=== PATIENT | female | born 1940 | race Caucasian/White ===

== ENCOUNTER → 2018-06-15 | Outpatient (CLI) | payer MEDICARE, OTHER ==
--- NOTE | 2018-06-15 13:57 | Diagnostic Imaging Report ---
INDICATION: Fall 3 views were obtained FINDINGS: The bones are osteopenic. There are mild degenerative change. There is no fracture or dislocation. Left lung is clear. IMPRESSION: Osteopenia and mild degenerative change however no acute fracture or dislocation. Dictated by: Dictated on workstation # [id number]
--- NOTE | 2018-06-15 15:00 | Diagnostic Imaging Report ---
INDICATION: Followup fracture. COMPARISON: None. FINDINGS: Three radiographic views of the left elbow were obtained. There is focal lucency involving the proximal radius, consistent with a fracture. The fracture line does extend into the articular surface of the radial head. There is, however, no significant displacement of the fracture fragments. There is no prior available for comparison. No other acute osseous abnormalities are seen. The joint spaces are maintained. There is no large joint effusion. No unexpected radiopaque foreign bodies are identified. IMPRESSION: Nondisplaced intra-articular radial head fracture as described above. Dictated by: Dictated on workstation # [id number]
== END ==
LOC: RAD FS 13:42
PROVIDERS: ATTEND Nurse Practitioner
DX: S52.132 Displaced fracture of neck of left radius (principal); M85.812 Other specified disorders of bone density and structure, left shoulder; M19.012 Primary osteoarthritis, left shoulder
CPT/HCPCS: 73030; 73080

== ENCOUNTER 2018-08-12 20:29 | Emergency (ER) | payer MEDICARE, OTHER ==
[~2018-08-12] VITALS: Ht 165.1 cm; Wt 63.5 kg
--- NOTE | 2018-08-12 21:10 | ED General ---
General Chief Complaint: General Problems/Pain Stated Complaint: HIGH BP; RIGHT ARM PAIN Source of Information: Patient, RN Notes Reviewed Exam Limitations: No Limitations History of Present Illness Date Seen by Provider: Aug 12, 2018 Time Seen by Provider: 21:09 Severity: Moderate Allergies and Home Medications Allergies Coded Allergies: No Known Drug Allergies (Unverified , 08/12/18) Past Iqvmuje-Ibwldb-Vbrhgh Hx Patient Social History Recent Foreign Travel: No Contact w/Someone Who Travel: No Physical Exam Vital Signs Vital Signs - First Documented 08/12/18 08/12/18 20:45 22:26 Temp 98.7 Pulse 76 Resp 20 B/P (MAP) 186/70 (108) Pulse Ox 99 Capillary Refill : Height, Weight, BMI Height: '" Weight: lbs. oz. kg; BMI Method: Progress/Results/Core Measures Suspected Sepsis SIRS Temperature: Pulse: Respiratory Rate: Blood Pressure / Mean: Results/Orders My Orders Orders - HARSHIL SUN DO Ekg Tracing (08/12/18 21:11) Oxycodone Immediate Rel Tablet (Oxyir Ta (08/12/18 21:30) Medications Given in ED Current Medications Medications Dose Ordered Sig/Floyd Route Start Time Stop Time Status Last Admin Dose Admin Oxycodone HCl 5 mg ONCE ONCE PO 08/12/18 21:30 08/12/18 21:31 DC 08/12/18 21:43 5 MG Vital Signs/I&O 08/12/18 08/12/18 20:45 22:26 Temp 98.7 98.7 Pulse 76 76 Resp 20 20 B/P (MAP) 186/70 (108) 186/70 (108) Pulse Ox 99 Capillary Refill : ECG Initial ECG Impression Date: Aug 12, 2018 Initial ECG Impression Time: 21:30 Initial ECG Rate: 67 Initial ECG Rhythm: Normal Sinus Initial ECG Impression: Nonspecific Changes (probable LAE) Departure Impression Primary Impression: Post-op pain Additional Impression: Labile hypertension Disposition: 01 HOME, SELF-CARE Condition: Improved Departure-Patient Inst. Decision time for Depature: 22:09 Referrals: SELFMIRIAN MD (PCP/Family) Primary Care Physician Patient Instructions: Postoperative Pain (DC) Add. Discharge Instructions: All discharge instructions reviewed with patient and/or family. Voiced understanding. TAKE YOUR PAIN MEDS/MUSCLE RELAXANTS DIRECTED. HARSHIL SUN DO Aug 12, 2018 21:10
--- OUTSIDE RECORDS SUMMARY | 2018-08-12 21:51 | XMS REPORT | Continuity of Care Document ---
Author Organization Unknown Address Unknown Allergies There is no data. Medications There is no data. Problems Date Dx Coded Attending Type Code Diagnosis Diagnosed By 06/16/2018 GERARDO FAUST Ot M19.012 PRIMARY OSTEOARTHRITIS, LEFT SHOULDER 06/16/2018 GERARDO FAUST Ot M85.812 OTH DISRD OF BONE DENSITY AND STRUCTURE, 06/16/2018 GERARDO FAUST Ot S52.132G DISP FX OF NECK OF LEFT RAD, SUBS FOR CL 06/17/2018 GERARDO FAUST Ot M19.012 PRIMARY OSTEOARTHRITIS, LEFT SHOULDER 06/17/2018 GERARDO FAUSTP Ot M85.812 OTH DISRD OF BONE DENSITY AND STRUCTURE, 06/17/2018 GERARDO FAUSTP Ot S52.132G DISP FX OF NECK OF LEFT RAD, SUBS FOR CL 06/21/2018 GERARDO FAUST Ot M19.012 PRIMARY OSTEOARTHRITIS, LEFT SHOULDER 06/21/2018 GERARDO FAUSTP Ot M85.812 OTH DISRD OF BONE DENSITY AND STRUCTURE, 06/21/2018 GERARDO FAUSTP Ot S52.132G DISP FX OF NECK OF LEFT RAD, SUBS FOR CL 07/07/2018 GERARDO FAUST Ot M19.012 PRIMARY OSTEOARTHRITIS, LEFT SHOULDER 07/07/2018 GERARDO FAUSTP Ot M85.812 OTH DISRD OF BONE DENSITY AND STRUCTURE, 07/07/2018 GERARDO FAUST Ot S52.132G DISP FX OF NECK OF LEFT RAD, SUBS FOR CL 07/24/2018 GERARDO FAUST Ot M19.012 PRIMARY OSTEOARTHRITIS, LEFT SHOULDER 07/24/2018 GERARDO FAUST Ot M85.812 OTH DISRD OF BONE DENSITY AND STRUCTURE, 07/24/2018 GERARDO FAUST Ot S52.132G DISP FX OF NECK OF LEFT RAD, SUBS FOR CL 08/12/2018 GERARDO FAUST Ot M19.012 PRIMARY OSTEOARTHRITIS, LEFT SHOULDER 08/12/2018 GERARDO FAUST Ot M85.812 OTH DISRD OF BONE DENSITY AND STRUCTURE, 08/12/2018 GERARDO FAUST Ot S52.132G DISP FX OF NECK OF LEFT RAD, SUBS FOR CL Procedures There is no data. Results There is no data. Encounters ACCT No. Visit Date/Time Discharge Status Pt. Type Provider Facility Loc./Unit Complaint [id number] 06/15/2018 13:42:00 06/15/2018 23:59:59 CLS Outpatient GERARDO FAUST Via [facility] RAD FS M25.512 [id number] 08/12/2018 20:31:00 ACT Emergency HARSHIL SUN DO Via [facility] ER FS HIGH BP; RIGHT ARM PAIN
[2018-08-12 22:26] VITALS: BP 186/70
== END 2018-08-12 22:27 | disposition home or self-care (01) ==
LOC: EDUNIT# 20:29 → ER FS 20:31
DX: G89.18 Other acute postprocedural pain (principal); M79.601 Pain in right arm; R03.0 Elevated blood-pressure reading, without diagnosis of hypertension
CPT/HCPCS: 93005

== ENCOUNTER 2018-11-11 15:48 | Emergency (ER) | payer MEDICARE, OTHER ==
[~2018-11-11] VITALS: Ht 165 cm; Wt 63.4 kg
--- NOTE | 2018-11-11 15:54 | ED General ---
General Chief Complaint: Abdominal/GI Problems Stated Complaint: PAIN WITH BOWEL MOVEMENTS History of Present Illness Date Seen by Provider: Nov 11, 2018 Time Seen by Provider: 15:54 Initial Comments Patient presenting to the [facility] department for evaluation of complaints of abdominal pain back pain diarrhea. The diarrhea has been an issue for at least 2 years for which she has seen multiple providers in this area and in [facility] where she lives part of the time. She says it isn't explosive diarrhea that she can be going at least 12 times a day. She gave the example of 10 days ago she was at a wedding and she had to leave the ceremony multiple times and there was leaking stool down her leg because she cannot hold it. She took tripped several days later and in the car had explosive diarrhea again. She says she has not been having as much explosive diarrhea until and today and she had an intense right-sided abdominal pain that radiated towards her back and down her right leg. She denies any fevers chills vomiting dysuria hematuria vaginal bleeding or vaginal discharge. She says she has seen multiple providers including GI specialist who have done endoscopies and colonoscopies with no etiology or specific treatment. She says a chi ropractor that she saw did allergy testing and thought that she may have a gluten intolerance and she has adjusted her diet which has helped some however the incidence of these episodes have been more frequent recently. She wants a referral to see a specific specialist in [place] for this issue and she is waiting for that referral from her primary care provider. She says she has never had her stool tested. There was a time about a year ago that she was on antibiotics from 3 different providers and she said that made her diarrhea worse at the time. She is in no obvious distress with normal vital signs. Allergies and Home Medications Allergies Coded Allergies: No Known Drug Allergies (Unverified , 08/12/18) Patient Home Medication List Home Medication List Reviewed: Yes Review of Systems Review of Systems Constitutional: no symptoms reported EENTM: no symptoms reported Respiratory: no symptoms reported Cardiovascular: no symptoms reported Gastrointestinal: abdominal pain, diarrhea Genitourinary: no symptoms reported Musculoskeletal: back pain Skin: no symptoms reported Psychiatric/Neurological: No Symptoms Reported All Other Systems Reviewed Negative Unless Noted: Yes Past Ozvspou-Ramzou-Zjiewd Hx Patient Social History 2nd Hand Smoke Exposure: No Recent Foreign Travel: No Contact w/Someone Who Travel: No Recent Hopitalizations: Yes (ortho [place]) Seasonal Allergies Seasonal Allergies: No Past Medical History Surgeries: Yes (L rotator cuff, bilat feet, neck C4-C6 fusion, facelift, breast augmentatio) Gallbladder, Hysterectomy, Orthopedic Respiratory: No Cardiac: No Neurological: No [employer]MENT [employer] History: Hysterectomy Genitourinary: No Gastrointestinal: No Musculoskeletal: Yes (see surg section) HEENT: No Cancer: No Psychosocial: No Blood Disorders: No Physical Exam Vital Signs Vital Signs - First Documented 11/11/18 16:00 Temp 36.9 Pulse 70 Resp 16 B/P (MAP) 176/84 (114) Pulse Ox 99 O2 Delivery Room Air Capillary Refill : Height, Weight, BMI Height: 5'5.00" Weight: 140lbs. oz. 63.726649is; BMI Method:Stated General Appearance: No Apparent Distress, WD/WN HEENT: PERRL/EOMI Neck: Supple Respiratory: No Respiratory Distress Cardiovascular: Regular Rate, Rhythm Gastrointestinal: Soft, Tenderness (right upper and lower quadrant with no rebound or guarding) Rectal: Deferred Back: Normal Inspection Neurologic/Psychiatric: Alert, Oriented x3 Progress/Results/Core Measures Suspected Sepsis SIRS Temperature: Pulse: Respiratory Rate: Laboratory Tests 11/11/18 16:29: White Blood Count 7.6 Blood Pressure / Mean: Laboratory Tests 11/11/18 16:29: Creatinine 0.72, Platelet Count 245, Total Bilirubin 0.2 Results/Orders Lab Results Laboratory Tests Test 11/11/18 16:29 Range/Units White Blood Count 7.6 4.3-11.0 10^3/uL Red Blood Count 3.94 L 4.35-5.85 10^6/uL Hemoglobin 12.5 11.5-16.0 G/DL Hematocrit 38 35-52 % Mean Corpuscular Volume 97 80-99 FL Mean Corpuscular Hemoglobin 32 25-34 PG Mean Corpuscular Hemoglobin Concent 33 32-36 G/DL Red Cell Distribution Width 13.9 10.0-14.5 % Platelet Count 245 130-400 10^3/uL Mean Platelet Volume 8.8 7.4-10.4 FL Neutrophils (%) (Auto) 58 42-75 % Lymphocytes (%) (Auto) 29 12-44 % Monocytes (%) (Auto) 10 0-12 % Eosinophils (%) (Auto) 2 0-10 % Basophils (%) (Auto) 1 0-10 % Neutrophils # (Auto) 4.4 1.8-7.8 X 10^3 Lymphocytes # (Auto) 2.2 1.0-4.0 X 10^3 Monocytes # (Auto) 0.7 0.0-1.0 X 10^3 Eosinophils # (Auto) 0.2 0.0-0.3 10^3/uL Basophils # (Auto) 0.1 0.0-0.1 10^3/uL Sodium Level 139 135-145 MMOL/L Potassium Level 4.2 3.6-5.0 MMOL/L Chloride Level 104 98-107 MMOL/L Carbon Dioxide Level 24 21-32 MMOL/L Anion Gap 11 5-14 MMOL/L Blood Urea Nitrogen 17 7-18 MG/DL Creatinine 0.72 0.60-1.30 MG/DL Estimat Glomerular Filtration Rate > 60 BUN/Creatinine Ratio 24 Glucose Level 100 70-105 MG/DL Calcium Level 9.4 8.5-10.1 MG/DL Corrected Calcium 9.3 8.5-10.1 MG/DL Magnesium Level 1.9 1.6-2.4 MG/DL Total Bilirubin 0.2 0.1-1.0 MG/DL Aspartate Amino Transf (AST/SGOT) 48 H 5-34 U/L Alanine Aminotransferase (ALT/SGPT) 40 0-55 U/L Alkaline Phosphatase 99 40-136 U/L Total Protein 7.2 6.4-8.2 GM/DL Albumin 4.1 3.2-4.5 GM/DL Lipase 67 8-78 U/L My Orders Orders - DINA BETANCUR DO Cbc With Automated Diff (11/11/18 16:13) Comprehensive Metabolic Panel (11/11/18 16:13) Ua Culture If Indicated (11/11/18 16:13) Lipase (11/11/18 16:13) Magnesium (11/11/18 16:13) Ct Abdomen/Pelvis W (11/11/18 16:13) C Difficile Ag + Toxin A/B. (11/11/18 16:13) Isolation Central Supply Req (11/11/18 16:13) Stool Culture (11/11/18 16:13) Parasite Scrn Stool Giard Cryp (11/11/18 16:13) Fecal Wbc (11/11/18 16:13) Ns Iv 1000 Ml (Sodium Chloride 0.9%) (11/11/18 16:15) Ondansetron Injection (Zofran Injectio (11/11/18 16:15) Ketorolac Injection (Toradol Injection) (11/11/18 16:15) Morphine Injection (Morphine Injection (11/11/18 16:13) Dicyclomine Injection (Bentyl Injection) (11/11/18 16:15) Iohexol Injection (Omnipaque 350 Mg/Ml 1 (11/11/18 17:15) Received Contrast (Hold Metformin- Contr (11/11/18 17:15) Sodium Chloride Flush (Catheter Flush Sy (11/11/18 17:15) Ns (Ivpb) (Sodium Chloride 0.9% Ivpb Bag (11/11/18 17:15) Hydrocodone/Apap 5/325 Tablet (Lortab 5 (11/11/18 17:45) Medications Given in ED Current Medications Medications Dose Ordered Sig/Floyd Route Start Time Stop Time Status Last Admin Dose Admin Dicyclomine HCl 20 mg ONCE ONCE IM 11/11/18 16:15 11/11/18 16:16 DC 11/11/18 16:39 20 MG Iohexol 100 ml ONCE ONCE IV 11/11/18 17:15 11/11/18 17:16 DC 11/11/18 17:19 100 ML Ketorolac Tromethamine 15 mg ONCE ONCE IVP 11/11/18 16:15 11/11/18 16:16 DC 11/11/18 16:38 15 MG Ondansetron HCl 4 mg ONCE ONCE IVP 11/11/18 16:15 11/11/18 16:16 DC 11/11/18 16:37 4 MG Sodium Chloride 10 ml NEEDED PRN IV 11/11/18 17:15 11/11/18 17:19 10 ML Sodium Chloride 100 ml ONCE ONCE IV 11/11/18 17:15 11/11/18 17:16 DC 11/11/18 17:19 80 ML Vital Signs/I&O 11/11/18 16:00 Temp 36.9 Pulse 70 Resp 16 B/P (MAP) 176/84 (114) Pulse Ox 99 O2 Delivery Room Air Capillary Refill : Progress Note : Progress Note She has had a she'll appendectomy cholecystectomy and hysterectomy. I will try and get stool studies checked for her and will check some basic lab work and CT to make sure there is no surgical pathology. This sounds as if she has some sort of combination of substance intolerance such as gluten or soy with a combination of irritable bowel syndrome. I do not think I will have an exact etiology to her symptoms will try and support her as best I can in relieving her symptoms. Patient's workup rather unremarkable and her pain is improved with no focal tenderness rebound or guarding on repeat abdominal examination. I looked up s ome information on treating irritable bowel syndrome and there is some evidence Zofran or tricyclic antidepressants and help the symptoms. I discussed treatment options with her and she was willing to try combination of Zofran and Bentyl and [place] for her pain will she is awaiting seeing the specialist in [place] hopefully next week. Patient is frustrated that the symptoms have been going on years and no one seems to be able to figure it out I told her that can be typical for some more rare conditions especially when it is chronic abdominal pain and diarrhea. Patient will be discharged in stable condition told to keep her follow-up and come back to the ED sooner with worsening pain fevers vomiting or other general concerns. Departure Impression Primary Impression: Abdominal pain Additional Impressions: Diarrhea Irritable bowel syndrome (IBS) Disposition: 01 HOME, SELF-CARE Condition: Stable Departure-Patient Inst. Referrals: SELF,MIRIAN DUBON (PCP/Family) Primary Care Physician Patient Instructions: Irritable Bowel Syndrome (DC) Scripts Hydrocodone/Acetaminophen ([place] 5-325 Tablet) 1 Each Tablet 1 TAB PO Q6H for Pain MDD 10 TABS for 7 Days, #14 TAB Prov: DINA BETANCUR DO 11/11/18 Dicyclomine HCl (Bentyl) 20 Mg/2 Ml Inj 20 MG PO TID PRN for ABDOMINAL PAIN, #20 VIAL Prov: DINA BETANCUR DO 11/11/18 Ondansetron (Ondansetron Odt) 4 Mg Tab.rapdis 4 MG PO TID, #30 TAB Prov: DINA BETANCUR DO 11/11/18 DINA BETANCUR DO Nov 11, 2018 15:54
[2018-11-11] MEDS ORDERED: morphine INJ 10 MG/ML 1ML (SYR OR VIAL) IVP STA (16:13)
[2018-11-11] MEDS ORDERED: NS IV 1000 ML 1,000 ML IV SCH (16:15)
[2018-11-11] MEDS ORDERED: KETOROLAC 15 MG/ML VIAL IVP ONE (16:15)
[2018-11-11] MEDS ORDERED: ONDANSETRON 4 MG/2 ML (SDV) Z0FRAN IVP ONE (16:15)
[2018-11-11] MEDS ORDERED: DICYCLOMINE 10 MG/ML (BENTYL) 2 ML AMP IM ONE (16:15)
[2018-11-11 16:41] LABS: BASOPHILS # (AUTO) 0.1 10^3/uL (0.0-0.1); BASOPHILS % (AUTO) 1 % (0-10); EOSINOPHILS # (AUTO) 0.2 10^3/uL (0.0-0.3); EOSINOPHILS % (AUTO) 2 % (0-10); HEMATOCRIT 38 % (35-52); HEMOGLOBIN 12.5 G/DL (11.5-16.0); LYMPHOCYTES # (AUTO) 2.2 X 10^3 (1.0-4.0); LYMPHOCYTES % (AUTO) 29 % (12-44); MEAN CORPUSCULAR HEMOGLOBIN 32 PG (25-34); MEAN CORPUSCULAR HGB CONC 33 G/DL (32-36); MEAN CORPUSCULAR VOLUME 97 FL (80-99); MEAN PLATELET VOLUME 8.8 FL (7.4-10.4); MONOCYTES # (AUTO) 0.7 X 10^3 (0.0-1.0); MONOCYTES % (AUTO) 10 % (0-12); NEUTROPHILS # (AUTO) 4.4 X 10^3 (1.8-7.8); NEUTROPHILS % (AUTO) 58 % (42-75); PLATELET COUNT 245 10^3/uL (130-400); RED CELL DISTRIBUTION WIDTH 13.9 % (10.0-14.5); WHITE BLOOD COUNT 7.6 10^3/uL (4.3-11.0)
[2018-11-11 17:00] LABS: CARBON DIOXIDE 24 MMOL/L (21-32); CHLORIDE 104 MMOL/L (98-107); POTASSIUM 4.2 MMOL/L (3.6-5.0); SODIUM 139 MMOL/L (135-145)
[2018-11-11 17:01] LABS: ALANINE AMINOTRANSFERASE 40 U/L (0-55); ALBUMIN 4.1 GM/DL (3.2-4.5); ALKALINE PHOSPHATASE 99 U/L (40-136); BILIRUBIN,TOTAL 0.2 MG/DL (0.1-1.0); BUN/CREATININE RATIO 24; CALCIUM 9.4 MG/DL (8.5-10.1); CREATININE SERUM 0.72 MG/DL (0.60-1.30); GFR ESTIMATED > 60; GLUCOSE 100 MG/DL (70-105); LIPASE 67 U/L (8-78); MAGNESIUM 1.9 MG/DL (1.6-2.4); TOTAL PROTEIN 7.2 GM/DL (6.4-8.2)
[2018-11-11] MEDS ORDERED: IOHEXOL 350 MG/ML 100 ML (OMNIPAQUE 350) VIAL IV ONE (17:15)
[2018-11-11] MEDS ORDERED: NS 100 ML (IVPB) BAG IV ONE (17:15)
[2018-11-11] MEDS ORDERED: HOLD METFORMIN - RECEIVED CONTRAST 20 ML VIAL IV SCH (17:15)
[2018-11-11] MEDS ORDERED: CATHETER FLUSH 10 ML SYR IV PRN (17:15)
[2018-11-11] MEDS ORDERED: ONDA4TAB11 PO (17:39)
[2018-11-11] MEDS ORDERED: DCCL10A2 PO (17:39)
[2018-11-11] MEDS ORDERED: HYDR-4226 PO (17:39)
[2018-11-11] MEDS ORDERED: HYDROcodone/APAP 5 MG/325 MG (LORTAB) TAB PO ONE (17:45)
[2018-11-11 17:55] LABS: BILIRUBIN,URINE NEGATIVE (NEGATIVE); CLARITY,URINE CLEAR; COLOR,URINE YELLOW; GLUCOSE, URINE (UA) NEGATIVE (NEGATIVE); KETONES,URINE NEGATIVE (NEGATIVE); LEUKOCYTE ESTERASE ,URINE NEGATIVE (NEGATIVE); NITRITE,URINE NEGATIVE (NEGATIVE); PROTEIN,URINE NEGATIVE (NEGATIVE); SQUAMOUS EPITHELIAL CELL,UR RARE /HPF; UROBILINOGEN,URINE 0.2 MG/DL (NORMAL)
--- NOTE | 2018-11-11 17:57 | Diagnostic Imaging Report ---
EXAMINATION: CT abdomen and pelvis with contrast from 11/11/2018. TECHNIQUE: Multiple contiguous axial images were obtained through the abdomen and pelvis after administration of intravenous contrast. Auto Exposure Controls were utilized during the CT exam to meet ALARA standards for radiation dose reduction. INDICATION: Abdominal pain on the right side with diarrhea for the last 10 days. Appendectomy. Gallbladder removed. Hysterectomy. COMPARISON: None. FINDINGS: There is diffuse fatty infiltration throughout the liver. Multiple low-density lesions throughout the liver are also noted, some of which are too small for characterization. Others are consistent with cysts. There is evidence of previous cholecystectomy. The adrenal glands, spleen, and pancreas are unremarkable. Common duct is slightly dilated but likely due to the post cholecystectomy changes. The kidneys contain multiple subcentimeter tiny hypodensities, too small for characterization. No acute abnormality. There is diffuse atherosclerotic disease. There is diverticulosis without evidence for diverticulitis. No free fluid or air in the abdomen or pelvis. Incompletely imaged peripherally calcified breast implants are noted bilaterally and grossly unremarkable. Lung bases demonstrate nodular changes in the visualized lingula. Adjacent bronchiectasis is seen. The largest nodule measures approximately 9.3 mm in size. Small nodularities or focal atelectasis/scarring noted in the visualized lingula as well. Bibasilar dependent atelectasis is also noted. The osseous structures are unremarkable. IMPRESSION: 1. Multifocal incidental findings as described above including post cholecystectomy changes and dilated common duct, likely due to the prior cholecystectomy. Correlation with liver enzymes and patient's symptoms recommended. 2. Diverticular disease without evidence for acute diverticulitis. 3. Nodular densities all of which are incompletely imaged in the visualized lingula and right middle lobe. An atypical infectious etiology or viral process could have this appearance with small lung masses not excluded and follow-up recommended to assure stability and/or resolution. Dictated by: Dictated on workstation # [id number]
[2018-11-11 18:20] VITALS: BP 167/71
== END 2018-11-11 18:20 | disposition home or self-care (01) ==
LOC: EDUNIT# 15:48 → ER FS 15:49
DX: K58.9 Irritable bowel syndrome, unspecified (principal); R19.7 Diarrhea, unspecified; Z90.710 Acquired absence of both cervix and uterus
CPT/HCPCS: 36415; 74177; 80053; 81000; 83690; 83735; 85025; 87015; 87045; 87046; 87324; 87328; 87329; 87449; 87899; 89055

== ENCOUNTER → 2018-12-21 | Outpatient (CLI) | payer MEDICARE, OTHER ==
[~2018-12-21] MED LIST: DCCL10A2 PO; HYDR-4226 PO; ONDA4TAB11 PO
--- NOTE | 2018-12-21 14:32 | Diagnostic Imaging Report ---
EXAMINATION: MRI of the lumbar spine without contrast, 12/21/2018. TECHNIQUE: Multiplanar, multisequence MRI of the lumbar spine was performed without contrast. INDICATION: Chronic back pain. FINDINGS: There is normal height and alignment of the vertebral bodies. No compression deformities appreciated. The tip of the conus is unremarkable in appearance and location. At L1-L2, there is intervertebral disc space narrowing and disc desiccation. There is bilateral facet and ligamentum flavum hypertrophy. No central stenosis. There is mild bilateral neural foraminal narrowing. L2-L3: Bilateral facet and ligamentum flavum hypertrophy noted. There is disc desiccation. There is minimal broad-based bulging disc material with no significant central stenosis. Bilateral [id number] neural foraminal narrowing is seen. L3-L4: There is intervertebral disc space narrowing and disc desiccation. Broad-based bulging disc material. Bilateral facet and ligamentum flavum hypertrophy noted. No central stenosis. Minimal left neural foraminal narrowing is seen. No significant narrowing on the right. L4-L5: There is intervertebral disc space narrowing, disc desiccation, and a broad-based bulging disc, somewhat right paracentral with an annular tear present. Findings flatten the ventral thecal sac. Bilateral facet and ligamentum flavum hypertrophy is seen. No central stenosis appreciated. No significant neural foraminal narrowing. L5-S1: There is disc desiccation. There is a central disc protrusion. Bilateral facet and ligamentum flavum hypertrophy also seen. No significant central narrowing. Neural foraminal stenosis is not seen. The visualized intra-abdominal structures demonstrate multiple small cystic changes throughout the right lobe of the liver. These are somewhat small for characterization. The remaining soft tissues are grossly unremarkable. IMPRESSION: 1. Multilevel degenerative findings as above causing petl-[id number] areas of neural foraminal narrowing with minimal multilevel flattening of the ventral thecal sac but no significant central stenosis. 2. Small cystic changes in the liver, not well characterized on this examination and incompletely included. Dedicated imaging of the liver non-emergently would be recommended. 3. Not mentioned above, on the T2-weighted imaging, multiple hyperintense lesions are seen throughout several of the vertebral bodies, most marked at L1. These could possibly represent atypical hemangiomas with other lesions difficult to completely exclude. No definite abnormality in the region seen on the CT abdomen and pelvis from 11/11/2018. Bone scan may be useful to help exclude any abnormal activity within these regions. Dictated by: Dictated on workstation # [id number]
--- NOTE | 2018-12-21 14:35 | Diagnostic Imaging Report ---
INDICATION: Chronic back pain. TECHNIQUE: Multiplanar and multisequence acquisitions were acquired through the thoracic spine without the use of gadolinium. FINDINGS: The alignment of the thoracic spine is grossly normal. The vertebral body heights are well-maintained. There is no fracture or traumatic subluxation. The visualized portions of the spinal cord are normal in signal intensity and morphology. The conus medullaris is seen at L1 and is normal in appearance. There is no focal disc extrusion or evidence of high-grade spinal stenosis. IMPRESSION: Mild thoracic spondylosis; otherwise, unremarkable. Dictated by: Dictated on workstation # [id number]
== END ==
LOC: RAD 12:29
PROVIDERS: ATTEND Physician Assistant
DX: M51.37 Other intervertebral disc degeneration, lumbosacral region (principal); M51.27 Other intervertebral disc displacement, lumbosacral region; M47.815 Spondylosis without myelopathy or radiculopathy, thoracolumbar region; M48.061 Spinal stenosis, lumbar region without neurogenic claudication; K76.89 Other specified diseases of liver; M89.9 Disorder of bone, unspecified
CPT/HCPCS: 72146; 72148

== ENCOUNTER → 2019-04-06 | Outpatient (CLI) | payer MEDICARE ==
--- NOTE | 2019-04-06 10:06 | Diagnostic Imaging Report ---
INDICATION: Postmenopausal screening for osteoporosis. COMPARISON: None. FINDINGS: AP Spine L1-L4: [BMD (g/cm2): 1.012] [T-Score: -1.6] [Z-Score: 0.4] [BMD Previous: na] [BMD % Change: na] LT Hip Neck: [BMD (g/cm2): 0.776] [T-Score: -1.9] [Z-Score: 0.2] LT Hip Total: [BMD (g/cm2):0.785] [T-Score:-1.8] [Z-Score: 0.2] [BMD Previous: na] [BMD % Change: na] RT Hip Neck: [BMD (g/cm2):0.790] [T-Score:-1.8] [Z-Score:0.3] RT Hip Total: [BMD (g/cm2):0.814] [T-score:-1.5] [Z-Score:0.4] [BMD Previous:na] [BMD % Change:na] *Indicates significant change from prior examination based on 95% confidence level. World Health Organization criteria for BMD interpretation classify patients as Normal (T-score at or above -1.0), Osteopenic (T-score between -1.0 and -2.5) or Osteoporotic (T-score at or below -2.5). LIMITATIONS AND MODIFICATION: None. FRACTURE RISK (FRAX SCORE): The ten year probability of (%): Major Osteoporotic Fracture: [19.1] Hip Fracture: [4.8] IMPRESSION: 1. Osteopenia (Low bone mass). 2. Baseline examination. 3. See below National Osteoporosis Foundation guidelines on when to potentially initiate pharmacologic therapy. Based on the National Osteoporosis Foundation Guidelines, pharmacologic treatment should be initiated in any of the following, unless clinical conditions suggest otherwise: * Any patient with prior fragility fracture of the hip or vertebrae. A spine fracture indicates 5X risk for subsequent spine fracture and 2X risk for subsequent hip fracture. * Osteoporosis (T-score <-2.5). * Postmenopausal women and men age 50 and older with low bone mass/osteopenia (T-score between -1.0 and -2.5) by DXA and 10-year major osteoporotic fracture greater than 20% or a 10-year probability of hip fracture greater than 3%. These fracture risks are supplied above in the FRAX score, if applicable. * Clinician judgement and/or patient preferences may indicate treatment for people with 10-year fracture probabilities above or below these levels. Dictated by: Dictated on workstation # [id number]
== END ==
LOC: RAD 09:17
PROVIDERS: ATTEND Family Medicine
DX: Z13.820 Encounter for screening for osteoporosis (principal); M85.80 Other specified disorders of bone density and structure, unspecified site; Z78.0 Asymptomatic menopausal state
CPT/HCPCS: 77080

== ENCOUNTER → 2019-04-20 | Outpatient (CLI) | payer MEDICARE, OTHER | LOC: LAB FS 14:59 | PROVIDERS: ATTEND Orthopaedic Surgery | DX: M25.562 Pain in left knee (principal) | CPT/HCPCS: 36415; 85652; 86141 ==

== ENCOUNTER → 2019-12-02 | Outpatient (CLI) | payer MEDICARE, OTHER ==
--- NOTE | 2019-12-02 10:58 | Diagnostic Imaging Report ---
PROCEDURE: MR imaging cervical spine without contrast. TECHNIQUE: Multiplanar, multisequence MR imaging of the cervical spine was performed without contrast. INDICATION: Neck pain. Previous neck surgery. COMPARISON: None FINDINGS: Postsurgical changes of previous anterior fusion are identified extending from C4 through C6. Evaluation of the integrity of the hardware is suboptimal given MR modality and metallic susceptibility artifact, but static alignment at these levels is maintained. There is no significant anterolisthesis or retrolisthesis. There is no evidence of jumped facets. Vertebral body heights are maintained. There is no evidence of acute fracture. There is mild Modic type I change involving the C3 and C7 vertebral bodies. Otherwise, marrow signal is unremarkable. Intervertebral disc spacer material is also noted at the C4-C5 and C5-C6 levels. There is no posterior protrusion of the spinal canal. There is no other significant spinal canal stenosis. Cervical cord is normal in course and signal. There is no evidence of cord edema. No abnormal intrathecal filling defects are seen. Included portions of posterior fossa are unremarkable. Pre and paravertebral soft tissue structures are within normal limits. Note is made of bilateral T2 bright thyroid lesions. Largest on the right measures 1.1 x 1.5 cm and largest on the left measures 1.4 x 1.2 cm. Axial images show no large disc bulge or focal protrusion. There is no significant spinal canal or neural foraminal stenosis. IMPRESSION: 1. Postsurgical changes of previous anterior fusion at C4-C6. Again, integrity of the hardware cannot be adequately assessed, but there is no significant anterolisthesis at these levels. 2. No significant spinal canal or neural foraminal stenosis. 3. No acute fracture or dislocation cervical spine. 4. Bilateral T2 bright thyroid lesions. Further characterization dedicated thyroid sonogram is recommended. Dictated by: Dictated on workstation # [id number]
== END ==
LOC: RAD 09:56
PROVIDERS: ATTEND Physician Assistant
DX: M43.12 Spondylolisthesis, cervical region (principal); E07.9 Disorder of thyroid, unspecified
CPT/HCPCS: 72141

== ENCOUNTER → 2020-01-24 | Outpatient (CLI) | payer MEDICARE, OTHER ==
--- NOTE | 2020-01-24 11:43 | Diagnostic Imaging Report ---
PROCEDURE: CT cervical spine without contrast. TECHNIQUE: Multiple contiguous axial images were obtained through the cervical spine without the use of intravenous contrast. Sagittal and coronal reformations were then performed. Auto Exposure Controls were utilized during the CT exam to meet ALARA standards for radiation dose reduction. INDICATION: Neck pain. Patient has had prior cervical spine surgery. COMPARISON: No prior CT cervical spine studies available for comparison. FINDINGS: Curvature of the cervical spine is normal. There is minimal anterolisthesis of C2 on C3. There are postoperative changes of ACDF with anterior plate and screws transfixing the C4 through C6 levels. The hardware appears intact. No fracture or loosening is seen. Bony structures are intact. There is degenerative disc disease at C2-C3, C3-C4 and C6-C7 levels with disc space narrowing and marginal spurring. Prevertebral tissues are within normal limits. No fractures are seen. Odontoid is intact. IMPRESSION: Postoperative changes of C4 through C6 ACDF. No complicating features are detected. Dictated by: Dictated on workstation # [id number]
== END ==
LOC: RAD FS 10:57
PROVIDERS: ATTEND Physician Assistant
DX: M54.2 Cervicalgia (principal)
CPT/HCPCS: 72125

== ENCOUNTER 2020-03-19 12:13 | Emergency (ER) | payer MEDICARE, OTHER ==
[~2020-03-19] VITALS: Ht 165 cm; Wt 62.3 kg
[2020-03-19 12:40] LABS: BASOPHILS # (AUTO) 0.1 10^3/uL (0.0-0.1); BASOPHILS % (AUTO) 1 % (0-10); EOSINOPHILS # (AUTO) 0.3 10^3/uL (0.0-0.3); EOSINOPHILS % (AUTO) 4 % (0-10); HEMATOCRIT 29 % (35-52); HEMOGLOBIN 9.3 G/DL (11.5-16.0); LYMPHOCYTES % (AUTO) 21 % (12-44); MEAN CORPUSCULAR HEMOGLOBIN 32 PG (25-34); MEAN CORPUSCULAR HGB CONC 33 G/DL (32-36); MEAN CORPUSCULAR VOLUME 97 FL (80-99); MEAN PLATELET VOLUME 8.4 FL (7.4-10.4); MONOCYTES % (AUTO) 10 % (0-12); NEUTROPHILS # (AUTO) 6.2 X 10^3 (1.8-7.8); NEUTROPHILS % (AUTO) 65 % (42-75); PLATELET COUNT 337 10^3/uL (130-400); WHITE BLOOD COUNT 9.5 10^3/uL (4.3-11.0)
[2020-03-19 12:44] LABS: CLARITY,URINE SL CLOUDY; COLOR,URINE YELLOW
[2020-03-19 12:45] LABS: BACTERIA,URINE FEW /HPF; BILIRUBIN,URINE NEGATIVE (NEGATIVE); GLUCOSE, URINE (UA) NEGATIVE (NEGATIVE); KETONES,URINE NEGATIVE (NEGATIVE); LEUKOCYTE ESTERASE ,URINE 1+ (NEGATIVE); NITRITE,URINE NEGATIVE (NEGATIVE); PROTEIN,URINE NEGATIVE (NEGATIVE)
[2020-03-19] MEDS ORDERED: NS IV 1000 ML 1,000 ML IV SCH (12:45)
[2020-03-19] MEDS ORDERED: CATHETER FLUSH 10 ML SYR IV PRN (12:45)
[2020-03-19] MEDS ORDERED: IOHEXOL 350 MG/ML 100 ML (OMNIPAQUE 350) VIAL IV ONE (12:45)
[2020-03-19] MEDS ORDERED: HOLD METFORMIN - RECEIVED CONTRAST 20 ML VIAL IV SCH (12:45)
[2020-03-19] MEDS ORDERED: PANTOPRAZOLE 40 MG (PROTONIX) VIAL IV ONE (12:45)
[2020-03-19] MEDS ORDERED: ONDANSETRON 4 MG/2 ML (SDV) Z0FRAN IVP ONE (12:45)
[2020-03-19] MEDS ORDERED: fentaNYL INJECTION 100 MCG/2 ML AMP IVP ONE (12:45)
[2020-03-19 12:46] LABS: HYALINE CASTS, URINE 25-50 /LPF
--- NOTE | 2020-03-19 12:46 | ED GI ---
General Chief Complaint: Abdominal/GI Problems Stated Complaint: ABD PAIN,NAUSEA, BLACK STOOLS Nursing Triage Note: PT REPORTS SHE HAS CHRONIC ABDOMINAL ISSUES AND SHE HAS BEEN TAKING BENTYL 3 TIMES A DAY BUT QUIT TAKING IT ON FRIDAY BECAUSE SHE THOUGHT IT WAS MAKING HER NAUSEATED. SHE REPORTS ONE EPISODE OF A BLACK STOOL TODAY. Sepsis Screen: No Definite Risk Source of Information: Patient History of Present Illness Date Seen by Provider: Mar 19, 2020 Time Seen by Provider: 12:15 Initial Comments 79-year-old female presenting with complaints of upper epigastric and right- sided abdominal pain. She states that she has had nausea for more than a week as well. She had a black-colored stool this morning and was concerned that she was bleeding so she came to the emergency department. She feels like she is bloated in her upper abdomen. She has severe pain with movement. She denies any vomiting but has felt nauseated. She thought initially it may have been related to Bentyl medication that she was taking but she quit it on Friday. She continues to feel nauseated and having the abdominal pain. She states she did have a small bowel movement this morning that was black in color. She reports that this feels similar to when she had gallbladder problems before her gallbladder was removed. Allergies and Home Medications Allergies Coded Allergies: No Known Drug Allergies (Unverified , 08/12/18) Home Medications Cephalexin 500 Mg Tablet, 500 MG PO TID Prescribed by: LILIAN CHAPARRO on 03/19/20 143 Dicyclomine HCl 20 Mg/2 Ml Inj, 20 MG PO TID PRN for ABDOMINAL PAIN Prescribed by: DINA BETANCUR on 11/11/18 173 Hydrocodone/Acetaminophen 1 Each Tablet, 1 TAB PO Q6H Prescribed by: DINA BETANCUR on 11/11/18 173 Ondansetron 4 Mg Tab.rapdis, 4 MG PO TID Prescribed by: DINA BETANCUR on 11/11/18 173 Ondansetron 4 Mg Tab.rapdis, 4 MG PO Q6H PRN for NAUSEA/VOMITING Prescribed by: LILIAN CHAPARRO on 03/19/20 143 Pantoprazole Sodium 40 Mg Tablet.dr, 40 MG PO DAILY Prescribed by: LILIAN CHAPARRO on 03/19/20 1433 Sucralfate 1 Gm Tablet, 1 GM PO ACHS Chew tablet to a slurry and then swallow Prescribed by: LILIAN CHAPARRO on 03/19/20 1433 Patient Home Medication List Home Medication List Reviewed: Yes Review of Systems Review of Systems Constitutional: No chills, No fever, No malaise EENTM: No Symptoms Reported Respiratory: No Symptoms Reported Cardiovascular: No Symptoms Reported Gastrointestinal: See HPI Genitourinary: Denies Pain Musculoskeletal: no symptoms reported Skin: no symptoms reported Psychiatric/Neurological: Anxiety; Denies Headache, Denies Numbness Past Mxrzocy-Ymnyed-Lpuggl Hx Past Med/Social Hx: Reviewed Nursing Past Med/Soc Hx Patient Social History Alcohol Use: Denies Use Smoking Status: Never a Smoker 2nd Hand Smoke Exposure: No Recent Infectious Disease Expo: No Recent Hopitalizations: No (ortho [employer]) Seasonal Allergies Seasonal Allergies: No Past Medical History Surgeries: Yes (L rotator cuff, bilat feet, neck C4-C6 fusion, facelift, breast augmentatio) Abdominal, Appendectomy, Gallbladder, Hysterectomy, Orthopedic Respiratory: No Cardiac: No 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 oz. 63.039777oy; 22.00 BMI Method:Stated General Appearance: WD/WN, mild distress HEENT: PERRL/EOMI Neck: non-tender, full range of motion, supple, normal inspection Respiratory: chest non-tender, lungs clear, normal breath sounds, no respiratory distress, no accessory muscle use Cardiovascular: normal peripheral pulses, regular rate, rhythm Gastrointestinal: soft, no pulsatile mass, abnormal bowel sounds (decreased bowel sounds), guarding; No rebound; tenderness (diffuse but worse in epigastric and right side of abdomen) Rectal: normal exam, normal rectal tone, heme negative stool Extremities: normal range of motion, non-tender, normal inspection, normal capillary refill Back: normal inspection Neurologic/Psychiatric: alert, normal mood/affect, oriented x 3 Skin: normal color, warm/dry Images 1 - diffuse abdominal pain but worse in epigastric and along right side 2 - diffuse abdominal pain but worse in epigastric and along right side Progress/Results/Core Measures Results/Orders Lab Results Laboratory Tests Test 03/19/20 12:10 03/19/20 12:20 Range/Units Urine Color YELLOW Urine Clarity SL CLOUDY Urine pH 6.0 5-9 Urine Specific [place] 1.020 1.016-1.022 Urine Protein NEGATIVE NEGATIVE Urine Glucose (UA) NEGATIVE NEGATIVE Urine Ketones NEGATIVE NEGATIVE Urine Nitrite NEGATIVE NEGATIVE Urine Bilirubin NEGATIVE NEGATIVE Urine Urobilinogen 0.2 < = 1.0 MG/DL Urine Leukocyte Esterase 1+ H NEGATIVE Urine RBC (Auto) NEGATIVE NEGATIVE Urine RBC NONE /HPF Urine WBC 10-25 H /HPF Urine Squamous Epithelial Cells 2-5 /HPF Urine Crystals NONE /LPF Urine Bacteria FEW H /HPF Urine Casts PRESENT /LPF Urine Hyaline Casts 25-50 H /LPF Urine Mucus MODERATE H /LPF Urine Culture Indicated YES White Blood Count 9.5 4.3-11.0 10^3/uL Red Blood Count 2.94 L 4.35-5.85 10^6/uL Hemoglobin 9.3 L 11.5-16.0 G/DL Hematocrit 29 L 35-52 % Mean Corpuscular Volume 97 80-99 FL Mean Corpuscular Hemoglobin 32 25-34 PG Mean Corpuscular Hemoglobin Concent 33 32-36 G/DL Red Cell Distribution Width 14.1 10.0-14.5 % Platelet Count 337 130-400 10^3/uL Mean Platelet Volume 8.4 7.4-10.4 FL Immature Granulocyte % (Auto) 0 % Neutrophils (%) (Auto) 65 42-75 % Lymphocytes (%) (Auto) 21 12-44 % Monocytes (%) (Auto) 10 0-12 % Eosinophils (%) (Auto) 4 0-10 % Basophils (%) (Auto) 1 0-10 % Neutrophils # (Auto) 6.2 1.8-7.8 X 10^3 Lymphocytes # (Auto) 2.0 1.0-4.0 X 10^3 Monocytes # (Auto) 1.0 0.0-1.0 X 10^3 Eosinophils # (Auto) 0.3 0.0-0.3 10^3/uL Basophils # (Auto) 0.1 0.0-0.1 10^3/uL Immature Granulocyte # (Auto) 0.0 0.0-0.1 10^3/uL Prothrombin Time 14.1 12.2-14.7 SEC INR Comment 1.1 0.8-1.4 Activated Partial Thromboplast Time 28 24-35 SEC Sodium Level 138 135-145 MMOL/L Potassium Level 3.9 3.6-5.0 MMOL/L Chloride Level 101 98-107 MMOL/L Carbon Dioxide Level 28 21-32 MMOL/L Anion Gap 9 5-14 MMOL/L Blood Urea Nitrogen 20 H 7-18 MG/DL Creatinine 0.87 0.60-1.30 MG/DL Estimat Glomerular Filtration Rate > 60 BUN/Creatinine Ratio 23 Glucose Level 98 70-105 MG/DL Calcium Level 9.1 8.5-10.1 MG/DL Corrected Calcium 9.2 8.5-10.1 MG/DL Total Bilirubin 0.2 0.1-1.0 MG/DL Aspartate Amino Transf (AST/SGOT) 20 5-34 U/L Alanine Aminotransferase (ALT/SGPT) 8 0-55 U/L Alkaline Phosphatase 116 40-136 U/L Total Protein 6.9 6.4-8.2 GM/DL Albumin 3.9 3.2-4.5 GM/DL Lipase 108 H 8-78 U/L My Orders Orders - LILIAN CHAPARRO MD Comprehensive Metabolic Panel (03/19/20 12:21) Lipase (03/19/20 12:21) Ua Culture If Indicated (03/19/20 12:21) Ed Iv/Invasive Line Start (03/19/20 12:21) Cbc With Automated Diff (03/19/20 12:21) Ct Abdomen/Pelvis W (03/19/20 12:21) Fecal Occult Bedside (03/19/20 12:21) Protime With Inr (03/19/20 12:21) Partial Thromboplastin Time (03/19/20 12:21) Iohexol Injection (Omnipaque 350 Mg/Ml 1 (03/19/20 12:45) Received Contrast (Hold Metformin- Contr (03/19/20 12:45) Sodium Chloride Flush (Catheter Flush Sy (03/19/20 12:45) Ns Iv 1000 Ml (Sodium Chloride 0.9%) (03/19/20 12:45) Pantoprazole Injection (Protonix Injecti (03/19/20 12:45) Fentanyl Injection (Sublimaze Injection (03/19/20 12:45) Ondansetron Injection (Zofran Injectio (03/19/20 12:45) Urine Culture (03/19/20 12:10) Sucralfate Tablet (Carafate Tablet) (03/19/20 14:30) Ceftriaxone For Iv Use (Rocephin For I (03/19/20 14:30) Medications Given in ED Current Medications Medications Dose Ordered Sig/Floyd Route Start Time Stop Time Status Last Admin Dose Admin Ceftriaxone Sodium 1000 mg/ Sterile Water 10 ml @ 200 mls/hr ONCE ONCE IV 03/19/20 14:30 03/19/20 14:32 DC 03/19/20 14:31 200 MLS/HR Fentanyl Citrate 50 mcg ONCE ONCE IVP 03/19/20 12:45 03/19/20 12:46 DC 03/19/20 12:49 50 MCG Iohexol 100 ml ONCE ONCE IV 03/19/20 12:45 03/19/20 12:46 DC 03/19/20 13:25 100 ML Ondansetron HCl 4 mg ONCE ONCE IVP 03/19/20 12:45 03/19/20 12:46 DC 03/19/20 12:47 4 MG Pantoprazole 40 mg ONCE ONCE IV 03/19/20 12:45 03/19/20 12:46 DC 03/19/20 12:48 40 MG Sucralfate 1 gm ONCE ONCE PO 03/19/20 14:30 03/19/20 14:31 DC 03/19/20 14:31 1 GM Vital Signs/I&O 03/19/20 03/19/20 12:32 14:41 Temp 35.6 36.5 Pulse 78 82 Resp 14 18 B/P (MAP) 150/82 (104) 142/50 Pulse Ox 99 O2 Delivery Room Air Room Air Blood Pressure Mean: 104 Progress Progress Note #1: Progress Note check labs to look for signs of anemia or infection. CT scan to check for diverticulitis, colitis, gastritis, free air, hepatitis. Try IVF for hydartion, Fentanyl for pain, Protonix for pain/gastritis, Zofran for nausea. Progress Note #2: Time: 13:52 Progress Note CBC and Chemistry stable without acute significant abnormality other than Hgb 9.3. Lipase slightly elevated to 108. UA shows LE with some WBC and bacteria for UTI. CT scan shows gastric edema and concern for developing peptic ulcer disease. Pt reports nausea resolved and pain improved but not gone. Treat with carafate to help with gastritis/ulcer, continue PPI such as protonix, Keflex for UTI after a dose of Rocephin here, Zofran ODT for nausea. Encouraged to check with clinic about setting up EGD and testing for H. Pylori infection. Hgb does show some anemia but with recent surgery/procedures she may have lost some blood with that, but may also be from slow GI bleed. Diagnostic Imaging Diagonstic Imaging: CT Plain Films/CT/US/NM/MRI: abdomen, pelvis Comments NAME: MARC CASTRO [facility] REC#: [id number] PT STATUS: REG ER : 1940 PHYSICIAN: LILIAN CHAPARRO MD ADMIT DATE: 03/19/20/ER FS Draft Date of Exam:03/19/20 CT ABDOMEN/PELVIS W EXAMINATION: CT Abdomen and Pelvis with intravenous contrast. TECHNIQUE: Multiple contiguous axial images were obtained through the abdomen and pelvis after the uneventful administration of intravenous contrast. All CT scans use one or more of the following dose optimizing techniques: automated exposure control, MA and/or KvP adjustment based on a patient size and exam type, or iterative reconstruction. HISTORY: Abdominal pain, nausea, dark stools COMPARISON: 11/11/2018 FINDINGS: Limited views of the lower thorax are unremarkable. There are a few small cysts in the liver. No suspicious liver lesions. There is no biliary ductal dilation. Gallbladder is absent. Pancreas is normal. Spleen is normal. Adrenal glands are normal. The kidneys are normal. There is no hydronephrosis. Urinary bladder is normal. Visualized bowel is normal in caliber without obstruction or inflammation. There is thickening of the gastric antrum with submucosal edema. No free fluid or air. No abdominal or pelvic lymphadenopathy. Aorta is normal in caliber without aneurysm. There are no suspicious osseus lesions. IMPRESSION: 1. Thickening of the gastric antrum with some mucosal edema which may represent gastritis or developing peptic ulcer disease. Dictated on workstation # [id number] Dict: 03/19/20 1345 Trans: 03/19/20 1351 [facility] [id number] Interpreted by: ABHISHEK LEO MD Electronically signed by: Departure Impression Primary Impression: Epigastric abdominal pain Additional Impressions: Nausea Gastritis Qualified Codes: K29.70 - Gastritis, unspecified, without bleeding Cystitis without hematuria Disposition: HOME, SELF-CARE Condition: Improved Departure-Patient Inst. Decision time for Depature: 14:33 Referrals: SELFMIRIAN MD (PCP/Family) Primary Care Physician Patient Instructions: Acid Reflux and GERD in Adults (DC), [place] Diet, Full Liquid Diet, Gastritis ED, Nausea and Vomiting, Adult ED, Peptic Ulcers (DC), Ulcer and Gastritis Diet, Urinary Tract Infection, Adult ED Add. Discharge Instructions: Stay well hydrated and get plenty of rest. Follow up with Dr. Paris from by phone to see how they want to proceed for your epigastric pain with gastritis vs peptic ulcer disease. An EGD (scope of your esophagus and stomach) will help look for ulcers and to help check for Helicobacter pylori infection. Follow a liquid diet for 24 hours then advance to bland diet as you tolerate it. Take the medicine to help with acid and gastritis inflammation of stomach lining. All discharge instructions reviewed with patient and/or family. Voiced understanding. Scripts Sucralfate (Sucralfate) 1 Gm Tablet 1 GM PO ACHS for Gastritis/Ulcers for 14 Days, #56 TAB 1 Refill Chew tablet to a slurry and then swallow Prov: LILIAN CHAPARRO MD 03/19/20 Pantoprazole Sodium (Pantoprazole Sodium) 40 Mg Tablet.dr 40 MG PO DAILY for Gastritis/Ulcers for 30 Days, #30 TAB 0 Refills Prov: LILIAN CHAPARRO MD 03/19/20 Cephalexin (Cephalexin) 500 Mg Tablet 500 MG PO TID for UTI for 5 Days, #15 TAB 0 Refills Prov: LILIAN CHAPARRO MD 03/19/20 Ondansetron (Ondansetron Odt) 4 Mg Tab.rapdis 4 MG PO Q6H PRN for NAUSEA/VOMITING for 5 Days, #20 TAB 0 Refills Prov: LILIAN CHAPARRO MD 03/19/20 LILIAN CHAPARRO MD Mar 19, 2020 12:46
[2020-03-19 12:47] LABS: INR 1.1 (0.8-1.4); PROTHROMBIN TIME PATIENT 14.1 SEC (12.2-14.7)
[2020-03-19 13:08] LABS: ALKALINE PHOSPHATASE 116 U/L (40-136); BILIRUBIN,TOTAL 0.2 MG/DL (0.1-1.0); BUN/CREATININE RATIO 23; CALCIUM 9.1 MG/DL (8.5-10.1); CARBON DIOXIDE 28 MMOL/L (21-32); CHLORIDE 101 MMOL/L (98-107); CREATININE SERUM 0.87 MG/DL (0.60-1.30); GFR ESTIMATED > 60; GLUCOSE 98 MG/DL (70-105); POTASSIUM 3.9 MMOL/L (3.6-5.0); SODIUM 138 MMOL/L (135-145)
[2020-03-19 13:09] LABS: ALANINE AMINOTRANSFERASE 8 U/L (0-55); ALBUMIN 3.9 GM/DL (3.2-4.5); LIPASE 108 U/L (8-78); TOTAL PROTEIN 6.9 GM/DL (6.4-8.2)
--- NOTE | 2020-03-19 13:51 | Diagnostic Imaging Report ---
EXAMINATION: CT Abdomen and Pelvis with intravenous contrast. TECHNIQUE: Multiple contiguous axial images were obtained through the abdomen and pelvis after the uneventful administration of intravenous contrast. All CT scans use one or more of the following dose optimizing techniques: automated exposure control, MA and/or KvP adjustment based on a patient size and exam type, or iterative reconstruction. HISTORY: Abdominal pain, nausea, dark stools COMPARISON: 11/11/2018 FINDINGS: Limited views of the lower thorax are unremarkable. There are a few small cysts in the liver. No suspicious liver lesions. There is no biliary ductal dilation. Gallbladder is absent. Pancreas is normal. Spleen is normal. Adrenal glands are normal. The kidneys are normal. There is no hydronephrosis. Urinary bladder is normal. Visualized bowel is normal in caliber without obstruction or inflammation. There is thickening of the gastric antrum with submucosal edema. No free fluid or air. No abdominal or pelvic lymphadenopathy. Aorta is normal in caliber without aneurysm. There are no suspicious osseus lesions. IMPRESSION: 1. Thickening of the gastric antrum with some mucosal edema which may represent gastritis or developing peptic ulcer disease. Dictated by: Dictated on workstation # [id number]
[2020-03-19] MEDS ORDERED: cefTRIAXone FOR IV USE 1,000 MG in WATER (STERILE) FOR INJECTION 10 ML IV ONE (14:30)
[2020-03-19] MEDS ORDERED: SUCRALFATE 1 GM (CARAFATE) TAB PO ONE (14:30)
[2020-03-19] MEDS ORDERED: SUCR1TAB PO (14:33)
[2020-03-19] MEDS ORDERED: CEPH500T PO (14:33)
[2020-03-19] MEDS ORDERED: ONDA4TAB11 PO (14:33)
[2020-03-19] MEDS ORDERED: PANT40TA52 PO (14:33)
[2020-03-19 14:41] VITALS: BP 142/50
== END 2020-03-19 14:42 | disposition home or self-care (01) ==
LOC: EDUNIT# 12:13 → ER FS 12:16
DX: R10.13 Epigastric pain (principal); R11.0 Nausea; K29.70 Gastritis, unspecified, without bleeding; N30.90 Cystitis, unspecified without hematuria; G89.29 Other chronic pain; M54.9 Dorsalgia, unspecified; Z79.891 Long term (current) use of opiate analgesic
CPT/HCPCS: 36415; 74177; 80053; 81000; 82274; 83690; 85025; 85610; 85730; 87088

== ENCOUNTER 2022-09-22 20:20 | Emergency (ER) | payer MEDICARE, OTHER ==
[~2022-09-22] VITALS: Ht 165.1 cm; Wt 59.8 kg
[~2022-09-22 20:20] MED LIST changes: +CEPH500T PO; +PANT40TA52 PO; +SUCR1TAB PO
--- NOTE | 2022-09-22 20:34 | ED Lower Extremity ---
General Stated Complaint: LEFT LEG LACERATION Source: patient Exam Limitations: no limitations History of Present Illness Date Seen by Provider: Sep 22, 2022 Time Seen by Provider: 20:24 Initial Comments 81-year-old female with no pertinent past medical history coming in due to an injury to her left lower extremity. She was walking to water some plants, tr ipped, and hit her left leg on a cast iron piece of metal. Caused a laceration to her left prieto. She presented to the ER shortly after. Last tetanus shot was more than 10 years ago. She is otherwise denying any other acute complaints. Did not hit her head, did not pass out, no neck or back pain, no headache. She does not take any blood thinners. Allergies and Home Medications Allergies Coded Allergies: No Known Drug Allergies (Unverified , 08/12/18) Patient Home Medication List Home Medication List Reviewed: Yes Cephalexin (Cephalexin) 500 Mg Tablet, 500 MG PO TID Prescribed by: LILIAN CHAPARRO on 03/19/20 143 Dicyclomine HCl (Bentyl) 20 Mg/2 Ml Inj, 20 MG PO TID PRN for ABDOMINAL PAIN Prescribed by: DINA BETANCUR on 11/11/18 173 Hydrocodone/Acetaminophen (Hydrocodone/Acetaminophen 5 MG/325 MG TAB) 1 Each Tablet, 1 TAB PO Q6H Prescribed by: DINA BETANCUR on 11/11/18 173 Ondansetron (Ondansetron Odt) 4 Mg Tab.rapdis, 4 MG PO TID Prescribed by: DINA BETANCUR on 11/11/18 173 Ondansetron (Ondansetron Odt) 4 Mg Tab.rapdis, 4 MG PO Q6H PRN for NAUSEA/VOMITING Prescribed by: LILIAN CHAPARRO on 03/19/20 143 Pantoprazole Sodium (Pantoprazole Sodium) 40 Mg Tablet.dr, 40 MG PO DAILY Prescribed by: LILIAN CHAPARRO on 03/19/20 143 Sucralfate (Sucralfate) 1 Gm Tablet, 1 GM PO ACHS Prescribed by: LILIAN CHAPARRO on 03/19/20 143 Review of Systems Constitutional: No fever Skin: see HPI Past Njwrktt-Ddgjjx-Tisryk Hx Seasonal Allergies Seasonal Allergies: No Past Medical History Surgeries: Yes (L rotator cuff, bilat feet, neck C4-C6 fusion, facelift, breast augmentatio) Abdominal, Appendectomy, Gallbladder, Hysterectomy, Orthopedic Respiratory: No Cardiac: No 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 oz. 63.205229hz; 22.00 BMI Method:Stated General Appearance: WD/WN, no apparent distress HEENT: PERRL/EOMI, normal ENT inspection, pharynx normal Neck: non-tender, full range of motion, supple, normal inspection Cardiovascular: regular rate, rhythm, no edema Respiratory: chest non-tender, lungs clear, normal breath sounds, no respiratory distress, no accessory muscle use Gastrointestinal: normal bowel sounds, non tender, soft Legs: left leg other (Left leg with irregular stellate laceration and skin tear that is superficial to the prieto) Neurologic/Psychiatric: no motor/sensory deficits, alert, normal mood/affect, oriented x 3 Skin: normal color, warm/dry Procedures/Interventions Wound Location: Lower Extremities Other Wound Location left prieto Wound Length (cm): 5 Wound's Depth, Shape: superficial Wound Explored: clean Irrigated w/ Saline (ccs): 500 Betadine Prep?: Yes Anesthesia: 1% Lidocaine Volume Anesthetic (ccs): 5 Suture: Ethlion Suture Size: 4-0 Number of Sutures: 5 Progress/Results/Core Measures Results/Orders My Orders Orders - MAT HARPER MD Dipht/Pertuss(Acell)/Tet Adult (Dipht/Pe (09/22/22 20:45) Acetaminophen Tablet (Acetaminophen Ta (09/22/22 20:45) Medications Given in ED Current Medications Medications Dose Ordered Sig/Floyd Route Start Time Stop Time Status Last Admin Dose Admin Acetaminophen 1,000 mg ONCE ONCE PO 09/22/22 20:45 09/22/22 20:46 DC 09/22/22 20:42 1,000 MG Diphtheria/ Tetanus/Acell Pertussis 0.5 ml ONCE ONCE IM 09/22/22 20:45 09/22/22 20:46 DC 09/22/22 20:43 0.5 ML Progress Progress Note : Progress Note Patient tripped and migrated into a piece of metal causing a laceration. No bony tenderness and she is ambulating. Tetanus updated today. The wound was cleaned, anesthetized, and closed with simple interrupted sutures. Patient tolerated this well. I believe she stable for discharge with outpatient follow-up. She was sent home with strict return precautions. Departure Impression Primary Impression: Laceration of prieto Disposition: HOME, SELF-CARE Condition: Stable Departure-Patient Inst. Decision time for Depature: 20:55 Referrals: LUANNE TATUM DO (PCP/Family) Primary Care Physician Patient Instructions: Laceration Repair With Stitches ED Add. Discharge Instructions: The stitches need to come out in 14 days. You can come back to the ER to have them taken out. The wound can get wet briefly in the shower with water running over it, you do not need to scrub it. Do not submerge the wound in any type of water until the stitches are out. Take Tylenol as needed for pain. There will be a scar unfortunately, you can improve this by putting petroleum on it while it is healing, and sunscreen on it after it is healed. MAT HARPER MD Sep 22, 2022 20:34
[2022-09-22] MEDS ORDERED: Tetanus/Diphtheria/Pertussis (Acell) ADULT Vaccine 0.5 ML IM ONE (20:45)
[2022-09-22] MEDS ORDERED: ACETAMINOPHEN 500 MG TABLET PO ONE (20:45)
[2022-09-22 21:00] VITALS: BP 186/73
== END 2022-09-22 21:00 | disposition home or self-care (01) ==
LOC: EDUNIT# 20:20 → ER FS 20:23
DX: S81.812A Laceration without foreign body, left lower leg, initial encounter (principal); Z23 Encounter for immunization; W18.40XA Slipping, tripping and stumbling without falling, unspecified, initial encounter; W22.8XXA Striking against or struck by other objects, initial encounter
CPT/HCPCS: 12002; 90715

== ENCOUNTER 2022-09-30 17:29 | Emergency (ER) | payer OTHER, MEDICARE ==
[~2022-09-30] VITALS: Ht 165.1 cm; Wt 59.2 kg
[2022-09-30 17:34] VITALS: BP 153/105
--- NOTE | 2022-09-30 17:56 | ED Integumentary General ---
General Chief Complaint: Skin/Wound Problems Stated Complaint: L LEG LAC Nursing Triage Note: PT AMBULATE TO ROOM FS01 WITHOUT DIFFICULTY WITH C/O PAIN TO RIGHT LOWER LEG THAT COMES AND GOES. Source: patient, RN notes reviewed, old records Exam Limitations: no limitations History of Present Illness Date Seen by Provider: Sep 30, 2022 Time Seen by Provider: 17:35 Initial Comments 81-year-old female patient with history of chronic back pain presented POV with complaining of left leg pain. Patient stated she had injury to the left anterior leg on September 22 and had laceration repair in this emergency room. Patient stated she had redness around the wound that getting better for the last couple days but today had severe pain in side of her wound and because of history of blood clot in her mother and her sister decided to come to ER for checking because she planned to travel to [place] in 2 days. Patient did not fever and chills, wound drainage, shortness of breath, history of DVT and PE. Allergies and Home Medications Allergies Coded Allergies: No Known Drug Allergies (Unverified , 08/12/18) Patient Home Medication List Home Medication List Reviewed: Yes Cephalexin (Cephalexin) 500 Mg Tablet, 500 MG PO TID Prescribed by: LILIAN CHAPARRO on 03/19/20 143 Cephalexin (Cephalexin) 500 Mg Tablet, 500 MG PO Q8H Prescribed by: Cecilia hernandez on 09/30/22 180 Dicyclomine HCl (Bentyl) 20 Mg/2 Ml Inj, 20 MG PO TID PRN for ABDOMINAL PAIN Prescribed by: DINA BETANCUR on 11/11/181738 Hydrocodone/Acetaminophen (Hydrocodone/Acetaminophen 5 MG/325 MG TAB) 1 Each Tablet, 1 TAB PO Q6H Prescribed by: DINA BETANCUR on 11/11/181738 Ondansetron (Ondansetron Odt) 4 Mg Tab.rapdis, 4 MG PO TID Prescribed by: DINA BETANCUR on 11/11/18 173 Ondansetron (Ondansetron Odt) 4 Mg Tab.rapdis, 4 MG PO Q6H PRN for NAUSEA/VOMITI NG Prescribed by: LILIAN CHAPARRO on 03/19/20 143 Pantoprazole Sodium (Pantoprazole Sodium) 40 Mg Tablet.dr, 40 MG PO DAILY Prescribed by: LILIAN CHAPARRO on 03/19/20 1433 Sucralfate (Sucralfate) 1 Gm Tablet, 1 GM PO ACHS Prescribed by: LILIAN CHAPARRO on 03/19/20 1433 Review of Systems Review of Systems Constitutional: no symptoms reported EENTM: no symptoms reported Respiratory: no symptoms reported Cardiovascular: no symptoms reported Gastrointestinal: no symptoms reported Genitourinary: no symptoms reported Musculoskeletal: see HPI Skin: no symptoms reported Psychiatric/Neurological: No Symptoms Reported Endocrine: No Symptoms Reported All Other Systems Reviewed Negative Unless Noted: Yes Past Vwvkrbq-Rrbqqf-Xxbzcd Hx Patient Social History Tobacco Use?: No Smoking Status: Never a Smoker Smokeless Tobacco Frequency: Never a User Use of E-Cig and/or Vaping dev: No Use of E-Cig and/or Vaping [place]: Never a User Substance use?: No Alcohol Use?: Yes Alcohol Frequency: Once in a while Pt feels they are or have been: No Seasonal Allergies Seasonal Allergies: No Past Medical History Surgery/Hospitalization HX: HTN, IBS, L TKR, L Knee Revision, Cervical spine fusion Surgeries: Yes (L rotator cuff, bilat feet, neck C4-C6 fusion, facelift, breast augmentatio) Abdominal, Appendectomy, Gallbladder, Hysterectomy, Orthopedic Respiratory: No Cardiac: No 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 Genitourinary: No Gastrointestinal: No Musculoskeletal: Yes (see surg section) Chronic Back Pain Endocrine: No HEENT: No Cancer: No Psychosocial: No Integumentary: No Blood Disorders: No Physical Exam Vital Signs Vital Signs - First Documented 09/30/22 17:34 Temp 36.8 Pulse 70 Resp 18 B/P (MAP) 153/105 (121) O2 Delivery Room Air Capillary Refill : Less Than 3 Seconds General Appearance: WD/WN, no apparent distress HEENT: PERRL/EOMI, normal ENT inspection Neck: non-tender Cardiovascular: regular rate, rhythm, no edema, no gallop Respiratory: chest non-tender, lungs clear, normal breath sounds Back: normal inspection Extremities: normal range of motion, no pedal edema, other (Sutured wound on anterior of the mid left lower extremity with central necrotic tissue without fluctuation or drainage of pus surrounded with erythema and tenderness to the lateral of the leg) Skin: normal color, warm/dry, other (As explained above) Skin Problem Location: lower extremities Skin Problem Character: erythema, tenderness Procedures/Interventions Suture Size: 4-0 Progress/Results/Core Measures Results/Orders My Orders Orders - CECILIA HERNANDEZ MD Tibia Fibula 2 View Left (09/30/22 17:46) Vital Signs/I&O 09/30/22 17:34 Temp 36.8 Pulse 70 Resp 18 B/P (MAP) 153/105 (121) O2 Delivery Room Air Blood Pressure Mean: 121 Progress Progress Note : Progress Note 81-year-old female patient with injury and laceration of left lower extremity with concern for edema and pain without having fever or shortness of breath. Patient had 10 x 10 cm erythema around the anterior wound of left leg without drainage of pus. X-ray of tibia and fibula was ordered and interpreted by me did not show acute fracture. Patient advised to apply Neosporin ointment on the affected area and follow-up with outpatient lower extremity Doppler study for DVT tomorrow at [facility] or [facility]. Prescription for cephalexin was given and patient advised to follow-up with primary care physician in 2 or 3 days or return to ER as needed. Diagnostic Imaging Diagonstic Imaging: Xray Plain Films/CT/US/NM/MRI: leg Comments Left tibia and fibula x-ray interpreted by me and did not show acute finding. Left tibia-fibula x-ray interpreted by radiologist and reviewed by me and showed: [facility], [place] NAME: MARC CASTRO MED REC#: [id number] PT STATUS: REG ER : 1940 PHYSICIAN: CECILIA HERNANDEZ MD ADMIT DATE: 09/30/22/ER FS Draft Date of Exam:09/30/22 TIBIA FIBULA 2 VIEW LEFT EXAM: TIBIA FIBULA 2 VIEW LEFT INDICATION: Left leg trauma and pain. COMPARISON: None. FINDINGS: Left total knee arthroplasty is partially visualized. No fractures. Soft tissue shadows are unremarkable. IMPRESSION: No acute radiographic findings in the left tibia or fibula. Dictated on workstation # [id number] Dict: 09/30/22 1758 Trans: 09/30/22 1800 AS6 [id number] Interpreted by: ASHOK ELIZABETH MD Electronically signed by: Departure Impression Primary Impression: Left leg cellulitis Additional Impression: Visit for wound check Disposition: 01 HOME, SELF-CARE Condition: Stable Departure-Patient Inst. Decision time for Depature: 17:59 Referrals: LUANNE TATUM DO (PCP/Family) Primary Care Physician Patient Instructions: Wound Care (DC), Cellulitis (Skin Infection), Adult ED Add. Discharge Instructions: Follow-up with [facility] in [place] or [facility] in [place] for left lower extremity ultrasound for possible blood clot Apply Neosporin ointment on the affected area Follow-up with your primary care physician in 2-3 days for wound check Return to ER as needed Continue home pain medication as needed for pain May apply warm compress on the affected area All discharge instructions reviewed with patient and/or family. Voiced understanding. Scripts Cephalexin (Cephalexin) 500 Mg Tablet 500 MG PO Q8H, #21 TAB 0 Refills Prov: CECILIA HERNANDEZ MD 09/30/22 CECILIA HERNANDEZ MD Sep 30, 2022 17:56
--- NOTE | 2022-09-30 18:00 | Diagnostic Imaging Report ---
EXAM: TIBIA FIBULA 2 VIEW LEFT INDICATION: Left leg trauma and pain. COMPARISON: None. FINDINGS: Left total knee arthroplasty is partially visualized. No fractures. Soft tissue shadows are unremarkable. IMPRESSION: No acute radiographic findings in the left tibia or fibula. Dictated by: Dictated on workstation # [id number]
[2022-09-30] MEDS ORDERED: CEPH500T PO (18:01)
== END 2022-09-30 18:07 | disposition home or self-care (01) ==
LOC: EDUNIT# 17:29 → ER FS 17:31
DX: L03.116 Cellulitis of left lower limb (principal); Z28.310 Unvaccinated for COVID-19
CPT/HCPCS: 73590

== ENCOUNTER 2022-10-08 12:59 | Emergency (ER) | payer MEDICARE, OTHER ==
[~2022-10-08] VITALS: Ht 160 cm; Wt 52.0 kg
[2022-10-08 13:00] VITALS: BP 150/84
--- NOTE | 2022-10-08 13:11 | ED Suture Removal/Wound Check ---
Suture/Wound Re-check Suture Removal/Wound Recheck : Suture Removal/Wound Recheck: Sutures removed by RN Progress Patient had removed stitches on her own prior to coming to the ED. She had one stitch that was sticking out of the wound but she was not able to remove it so she came to the ED. Nurse removed the single thread of suture without difficulty. She does not have fluctuance, drainage, or induration to indicate an active infection. Counseled on follow up and return precautions. Physical Exam Vital Signs Capillary Refill : General Appearance: WD/WN, no apparent distress Skin: warm/dry, other (mild erythema to healing wound on left anterior prieto) Departure Impression Primary Impression: Visit for suture removal Disposition: HOME, SELF-CARE Condition: Stable Departure-Patient Inst. Decision time for Depature: 13:05 Referrals: HERNÁN TATUM DO (PCP) Primary Care Physician Patient Instructions: SUTURE REMOVAL-UNCOMPLICATED Add. Discharge Instructions: All discharge instructions reviewed with patient and/or family. Voiced understanding. LILIAN CHAPARRO MD Oct 08, 2022 13:11
== END 2022-10-08 13:12 | disposition home or self-care (01) ==
LOC: EDUNIT# 12:59 → ER FS 13:01
DX: Z48.02 Encounter for removal of sutures (principal)